=== PATIENT | male | born 1975 | race Hispanic/Latino ===

== ENCOUNTER 2020-08-30 15:16 | Observation (INO) | payer OTHER, SELFPAY ==
--- NOTE | 2020-08-30 15:54 | RAD ---
XR Ankle Lt 2 View History: Pain and swelling after fall Comparison: None. Findings: Spiral fracture distal tibial diaphysis without definite articular extension. The fracture extends from 13 cm with the joint line to 4 cm above the jointline. 1 cortex width lateral displacement. Distal fibula appears to be intact. Midfoot evaluation is limited. Small ossicle along the distal fibula. Impression: Mildly displaced spiral fracture distal tibial metadiaphysis.
[2020-08-30] MEDS ORDERED: Bacitracin 1 PK ONE (17:06)
[2020-08-30] MEDS ORDERED: traMADol HCl 50 MG TAB PO PRN ×2 (18:03)
[2020-08-30] MEDS ORDERED: Ondansetron ODT 4 MG TAB PO PRN (18:03)
[2020-08-30] MEDS ORDERED: Ondansetron PF 4 MG/2 ML Vial IVP PRN (18:03)
[2020-08-30] MEDS ORDERED: Dextrose 5% in Water 1,000 ML IV PRN (18:03)
[2020-08-30] MEDS ORDERED: hydrALAZINE 20 MG/ML VIAL SLOW IVP PRN (18:03)
[2020-08-30] MEDS ORDERED: Dextrose 50% Abboject 50 ML SYRINGE SLOW IVP PRN (18:03)
[2020-08-30] MEDS ORDERED: Cyclobenzaprine 10 MG TAB PO PRN (18:03)
[2020-08-30] MEDS ORDERED: Morphine 2 MG/ML VIAL SLOW IVP PRN (18:03)
--- NOTE | 2020-08-30 18:31 | HP ---
REQUESTING PHYSICIAN: Dr. Hernandes. ATTENDING SURGEON: Dr. Cruz. CONSULTATIONS: Orthopedics, Dr. Crowley. HISTORY OF PRESENT ILLNESS: The patient is a 45-year-old man. He came to the ER today complaining of left leg pain. He reports that three days ago he fell on his left side. The patient reports that he had been drinking alcohol and also has had a CVA leaving him with a left-sided deficit that contributed to his fall. Today, he came to the emergency department where he underwent evaluation and examination and was noted to have a left distal 1/3 tibia shaft fracture at which time we were asked to evaluate the patient for admission and obtain Orthopedic consultation. The patient denied loss of consciousness at the time of his fall. ALLERGIES: NONE. CURRENT MEDICATIONS: 1. Amlodipine. 2. Lisinopril. 3. Metoprolol. 4. . 5. Simvastatin. 6. . 7. Phenytoin. PAST MEDICAL HISTORY: CVA, seizure disorder related to his CVA, hypertension, hyperlipidemia, bipolar disorder. PAST SURGICAL HISTORY: None. SOCIAL HISTORY: The patient reports abusing cocaine in the past. Smokes one pack of cigarettes per day, drinks three or four times a week. He lives at home with family and is currently on disability. REVIEW OF SYSTEMS: A 10-point review of systems is negative as otherwise stated. PHYSICAL EXAMINATION: VITAL SIGNS: Blood pressure 126/82, heart rate 90, respirations 19, oxygen saturation 99% on room air, temperature is 98.5. GENERAL: The patient is resting comfortably in bed. He is awake, alert, and oriented. Elizabeth Coma Scale is 15. HEENT: Head is normocephalic and atraumatic. Eyes, extraocular motion intact. PERRLA bilaterally. Ears are atraumatic without discharge. Nose is atraumatic without discharge. Oropharynx is clear. NECK: Nontender. Trachea is midline with no JVD. CHEST: Clear to auscultation with good inspiratory and expiratory effort. HEART: Regular rate and rhythm. ABDOMEN: Soft, flat, nontender with active bowel sounds. PELVIS: Stable. EXTREMITIES: Neurovascularly intact x4. Left lower extremity has a small abrasion noted in the area of his fracture line, this is scabbed over. There is contusion around up and no evidence of infection. Compartments are soft. BACK: Atraumatic and nontender. LABORATORY DATA: Labs are pending. RADIOGRAPHS: Views of the left ankle show a mildly displaced spiral fracture of the distal tibial metadiaphysis. ASSESSMENT AND PLAN: 1. Status post ground level fall with delayed presentation of three days. 2. Left mildly displaced spiral fracture of distal tibia metadiaphysis. 3. History of CVA with left-sided deficit. 4. Seizure disorder. 5. History of hypertension. 6. History of hyperlipidemia. PLAN: Plan will be to admit the patient to the surgical floor. He will be made n.p.o. after midnight. Posterior splint was placed in the emergency department. We will do fluid hydration and resume home medications and supportive care overnight. Tomorrow, have the patient work with Physical and Occupational Therapy and possibly discharge home. We did discuss possible rehab placement if possible in light of the patient's left-sided deficit will be difficult for him to ambulate. We work with therapy with this. Dr. Crowley was notified of this patient and agree that he will do surgery tomorrow. The evaluation, examination, laboratory, and radiographic findings were discussed with Dr. Cruz after this dictation. Job ID: [id number]
[2020-08-30 18:59] LABS: #Lymphocytes 1.1 thou/uL (1.20-3.40); #Monocytes 1.1 thou/uL (0.11-0.59); %Basophils 0.5 % (0.0-1.0); %Eosinophils 0.3 % (0.0-10.0); %Lymphocytes 12.1 % (21.0-51.0); %Monocytes 11.9 % (0.0-10.0); %Neutrophils 75.2 % (42.0-75.0); Hemoglobin 14.7 g/dL (14.0-18.0); Mean Corpuscular HGB CONC 33.6 g/dL (32.0-36.0); Mean Corpuscular Hemoglobin 32.7 pg (27.0-31.0); Mean Corpuscular Volume 97.2 fL (78.0-98.0); Mean Platelet Volume 8.1 fL (7.4-10.4); Platelet Count 304 thou/uL (130-400); White Blood Cell (WBC) Count 9.3 thou/uL (4.8-10.8)
[2020-08-30 19:08] VITALS: BMI 28.3
[2020-08-30 19:22] LABS: Anion Gap 18 mmol/L (10-20); BUN (Urea Nitrogen) 23 mg/dL (8.9-20.6); Calc. Creatinine Clearance 83 mL/min (70-130); Calcium 9.2 mg/dL (7.8-10.44); Carbon Dioxide 19 mmol/L (22-29); Chloride 107 mmol/L (98-107); Glucose 163 mg/dL (70-105); Magnesium 2.7 mg/dL (1.6-2.6); Phosphorus 2.8 mg/dL (2.3-4.7); Potassium 4.4 mmol/L (3.5-5.1); Sodium 140 mmol/L (136-145)
[2020-08-30] MEDS: Ibuprofen 600 MG TAB PO SCH (22:38)
[2020-08-30] MEDS: Acetaminophen 500 MG TAB PO SCH (22:39)
[2020-08-30] MEDS: Famotidine 20 MG TAB PO SCH (22:39)
[2020-08-30] MEDS: Sodium Chloride 0.9% 1,000 ML IV SCH (22:46)
[2020-08-31] MEDS: Acetaminophen 500 MG TAB PO SCH (05:33)
[2020-08-31] MEDS: Ibuprofen 600 MG TAB PO SCH ×3 (05:34→21:19)
[2020-08-31 05:58] LABS: Hemoglobin 12.5 g/dL (14.0-18.0); Mean Corpuscular Hemoglobin 32.9 pg (27.0-31.0); Mean Corpuscular Volume 96.6 fL (78.0-98.0); Mean Platelet Volume 7.6 fL (7.4-10.4); Platelet Count 261 thou/uL (130-400); RBC Distribution Width 12.7 % (11.5-14.5); Red Blood Cell (RBC) Count 3.79 mill/uL (4.70-6.10); White Blood Cell (WBC) Count 6.5 thou/uL (4.8-10.8)
[2020-08-31 06:07] LABS: Anion Gap 13 mmol/L (10-20); BUN (Urea Nitrogen) 22 mg/dL (8.9-20.6); Calc. Creatinine Clearance 108 mL/min (70-130); Calcium 8.1 mg/dL (7.8-10.44); Carbon Dioxide 20 mmol/L (22-29); Chloride 110 mmol/L (98-107); Glucose 106 mg/dL (70-105); Magnesium 2.4 mg/dL (1.6-2.6); Potassium 3.7 mmol/L (3.5-5.1); Sodium 139 mmol/L (136-145)
[2020-08-31 07:04] LABS: Band 8 % (5-11); Eosinophils 1 % (0-10); Lymphocytes 25 % (21-51); MDiff Complete? YES; Monocytes 14 % (0-10); Neutrophil 52 % (42-75)
[2020-08-31] MEDS ORDERED: Acetaminophen/Codeine 30-300mg Tablet PO PRN (07:55)
[2020-08-31] MEDS: Sodium Chloride 0.9% 1,000 ML IV SCH ×2 (08:00→14:47)
[2020-08-31] MEDS: Famotidine 20 MG TAB PO SCH ×2 (08:01→21:20)
[2020-08-31] MEDS: Acetaminophen 325 MG TAB PO SCH ×3 (08:19→21:19)
[2020-08-31] MEDS ORDERED: Oxazepam 10 MG CAP PO SCH (09:00)
--- NOTE | 2020-08-31 09:14 | CON ---
DATE OF CONSULTATION: 08/31/2020 CHIEF COMPLAINT: Left leg pain. HISTORY OF PRESENT ILLNESS: Mr. Morris is a 45-year-old male, who fell approximately 3 days ago. He landed on his left side. He has weakness on his left side from a previous CVA. The patient had been drinking alcohol. He tripped. He cannot use a walker because of a left hand deformity from his CVA. Initially, thought he may have sprained his leg, however, he became worse. He was unable to bear weight. He went to the emergency department, where midshaft tibia fracture was identified. The patient has been admitted to the hospital. He is currently resting comfortably. He is in a splint. ALLERGIES: NONE. CURRENT MEDICATIONS: 1. Amlodipine. 2. Lisinopril. 3. Metoprolol. 4. Simvastatin. 5. Phenytoin. PAST MEDICAL HISTORY: Seizure disorder related to his CVA, hypertension, hyperlipidemia. He has a history of bipolar disorder. PAST SURGICAL HISTORY: Negative. SOCIAL HISTORY: The patient drinks alcohol occasionally. He does not drink daily. He smokes cigarettes daily. He has a history of cocaine use. REVIEW OF SYSTEMS: Positive for left leg pain. Otherwise, negative 10-point review of systems. IMAGING STUDIES: X-rays of the left tibia demonstrate a distal one-third fracture of the shaft of the tibia. There is displacement and comminution. PHYSICAL EXAMINATION: VITAL SIGNS: Temperature is 97.6, pulse is 77, respiratory rate of 14, oxygen saturation 98%, blood pressure 133/77. GENERAL: He is alert, oriented, in no apparent distress. Breathing comfortably. HEENT: Normocephalic and atraumatic. RESPIRATORY: Breathing comfortably. ABDOMEN: Soft, nontender, nondistended. MUSCULOSKELETAL: The left leg is splinted. He is able to wiggle his toes. He has 2-second capillary refill distally. IMPRESSION: Left distal one-third tibia fracture in a 45-year-old male. PLAN: The patient will need to go to the operating room today. We will plan for intramedullary nail fixation of his tibia. He is aware of risks and benefits. Goal is to allow him to mobilize and allow some weightbearing given that he has inability to use his left hand for a walker or crutches. He will have pain control. He will have antibiotics on-call to the operating room. We will proceed today as scheduled. Risks to include infection, nonunion, malunion, DVT, PE, pain, and others. Job ID: [id number]
[2020-08-31 09:24] LABS: SARS-CoV-2 NAA Rapid Test Not Detected (NotDetected)
[2020-08-31] MEDS: Folic Acid 1 MG TAB PO SCH (09:35)
[2020-08-31] MEDS: Thiamine 100 MG TAB PO SCH (09:35)
[2020-08-31] MEDS: levETIRAcetam 500 MG TAB PO SCH ×2 (09:35→21:19)
[2020-08-31] MEDS: Multivitamin W/ Minerals 1 TAB PO SCH (09:35)
[2020-08-31] MEDS ORDERED: Ondansetron PF 4 MG/2 ML Vial ONE (10:00)
[2020-08-31] MEDS ORDERED: Esmolol 100 MG/10 ML VIAL ONE (10:00)
[2020-08-31] MEDS ORDERED: PROPOFOL 200 MG/20 ML VIAL ONE (10:00)
[2020-08-31] MEDS ORDERED: Rocuronium Bromide 10 MG/ML (10ML VIAL) ONE (10:00)
[2020-08-31] MEDS ORDERED: Glycopyrrolate 0.2 MG/ML 5 ML SYRINGE ONE (10:00)
[2020-08-31] MEDS ORDERED: Lidocaine 1% PF 5 ML VIAL ONE (10:00)
[2020-08-31] MEDS ORDERED: Fentanyl 100 MCG/2 ML VIAL ONE ×2 (11:54→13:49)
[2020-08-31] MEDS ORDERED: Midazolam HCl 2 mg/2 ml Vial ONE ×2 (11:55→13:25)
[2020-08-31] MEDS ORDERED: HYDROmorphone 2 MG/ML VIAL ONE (12:42)
--- NOTE | 2020-08-31 15:24 | RAD ---
EXAM: XR Tib Fib Lt Leg 2 View DATE: 08/31/2020 12:00 PM INDICATION: ORIF of left foreleg fracture COMPARISON: None. FINDIN submitted fluoroscopic spot images of the left foreleg. There is an intramedullary caro traversing the distal tibial shaft fracture. Fracture alignment is giuliana r-anatomic. There is a mildly displaced obliquely oriented fracture involving the proximal fibular shaft. Total fluoroscopic time was 39.3 seconds. Total exposure was 1.43 mGy IMPRESSION:Intramedullary rodding of the distal tibial shaft fracture. Fracture alignment is near dionna tomic. Mildly displaced obliquely oriented proximal fibular shaft fracture Transcribed Date/Time: 08/31/2020 3:29 PM
--- NOTE | 2020-08-31 19:12 | OP ---
DATE OF PROCEDURE: 08/31/2020 OPERATION PERFORMED: Left tibia intramedullary nail. PREOPERATIVE DIAGNOSIS: Displaced Left tibia fracture. POSTOPERATIVE DIAGNOSIS: Displaced Left tibia fracture. COMPLICATIONS: None. ESTIMATED BLOOD LOSS: 100 mL. APPLICATION SUPPORT DEVELOPER: Ayo Mujica PA-C IMPLANTS: Synthes 315 mm x 9 mm tibial nail with Crosslock screws. INDICATIONS: Mr. Morris is a 45-year-old male who has fallen and fractured his left tibia. He has been indicated for intramedullary nail fixation to restore anatomic alignment, promote healing, and allow him to mobilize. Risks have been reviewed in detail. He has elected to proceed with the operation. DESCRIPTION OF PROCEDURE: The patient's left lower extremity was prepped and draped in sterile fashion. We began the procedure with incision over the knee. We dissected down through the subcutaneous tissues to the fascia. The fascia was opened. At this point, we performed a medial parapatellar arthrotomy. We then inserted our guidewire at the tibial plateau. We checked this on intraoperative x-rays. We overdrilled the guidewire. We then inserted a ball-tipped guidewire from proximal to distal across the fracture. We reduced the fracture as well with traction. We measured the length for a guidewire. We then reamed from an 8.5 reamer to a 10. We next impacted a 300 mm x 9 mm tibial nail. We placed 2 proximal Crosslock screws and two distal Crosslock screws. A sterile dressing was applied. After we took final x-ray images, we closed all wounds in layers carefully. The patient was awoken and taken to the recovery room in good condition. The librarian assistant surgeon was responsible for positioning the patient, preparing the injured extremity, applying the tourniquet, and assisting in preparation for surgery. The librarian assistant was instrumental in reducing the injured limb by applying traction and reduction maneuvers as well as holding retractors and reduction tools. The librarian assistant also was instrumental in assisting in exposure throughout the operation using appropriate retractors. The librarian assistant participated in closure of the operative site as well as dressing application and splint application. Job ID: [id number] [facility]
--- NOTE | 2020-08-31 21:07 | PRG ---
DATE OF SERVICE: 08/31/2020 SUBJECTIVE: The patient is currently hospital day 2 status post ground level fall which had a remote presentation. He sustained a left distal tibia fracture that today underwent intramedullary nail fixation. He tolerated this procedure well. He begun working with Physical and Occupational therapy and will most likely be able to be discharged home tomorrow. The patient is currently tolerating a diet and his pain is controlled. PHYSICAL EXAMINATION: VITAL SIGNS: Temperature is 97.5, heart rate 93, blood pressure 131/84, respirations 16, oxygen saturation 95% on room air. GENERAL: The patient is resting comfortably in bed. He is postop from his procedure, which he has already worked with therapy. He was seen this morning as they were preparing him for surgery also. He is awake, alert, conversant, appropriate, and feels that he is ready to go home. HEENT: Unremarkable. LUNGS: Clear to auscultation bilaterally. HEART: Regular rate and rhythm. ABDOMEN: Soft, flat, nontender with active bowel sounds. EXTREMITIES: Neurovascularly intact x4. LABORATORY FINDINGS: White blood cell count 6.5, hemoglobin 12.5, hematocrit 36.6, platelets 261. Sodium 139, potassium 3.7, chloride 110, CO2 of 20, BUN 22, creatinine 0.93, glucose 106, magnesium 2.4, phosphorus 3.0. RADIOGRAPHS: There are no radiographs reviewed this morning. ASSESSMENT: 1. Status post ground level fall with delayed presentation of 3 days. 2. Status post intramedullary nail fixation of left tibial fracture. 3. History of cerebrovascular accident with left-sided deficit. 4. Seizure disorder. 5. History of hypertension and hyperlipidemia. PLAN: Plan will be to continue supportive care. Encourage physical and occupational therapy and likely discharge home tomorrow. The patient was evaluated this morning with Dr. Cruz during rounds. Job ID: [id number]
[2020-08-31] MEDS: CEFAZOLIN 2 GM in Premix Bag 1 BAG IVPB SCH (21:20)
[2020-09-01] MEDS: CEFAZOLIN 2 GM in Premix Bag 1 BAG IVPB SCH (03:17)
[2020-09-01] MEDS: Acetaminophen 325 MG TAB PO SCH ×3 (04:16→14:39)
[2020-09-01] MEDS: Ibuprofen 600 MG TAB PO SCH ×2 (06:29→14:38)
[2020-09-01 07:53] VITALS: TEMP 97.9
[2020-09-01] MEDS: Thiamine 100 MG TAB PO SCH (09:25)
[2020-09-01] MEDS: Folic Acid 1 MG TAB PO SCH (09:25)
[2020-09-01] MEDS: Famotidine 20 MG TAB PO SCH (09:25)
[2020-09-01] MEDS: Multivitamin W/ Minerals 1 TAB PO SCH (09:25)
[2020-09-01] MEDS: levETIRAcetam 500 MG TAB PO SCH (09:25)
[2020-09-01] MEDS ORDERED: Acetaminophen 650 MG/20.3 ML UDCUP PER TUBE PRN (10:03)
--- NOTE | 2020-09-01 10:05 | PRG ---
DATE OF SERVICE: 09/01/2020 SUBJECTIVE: Lon is a 45-year-old male postop day 1 from a left tibial nail for distal metadiaphyseal fracture. He is comfortable and he inquires about going home this morning. OBJECTIVE: Strike through has been re-dressed x1, but he did have some significant strike through last night. He is neurovascularly intact. He has poor range of motion, but his sensation is there. This is a preoperative finding due to his hemiparesis. IMPRESSION: 1. A 45-year-old male postop day #1 left tibial nail insertion. 2. Preoperative hemiparesis secondary to a centrally mediated stroke. PLAN: Continue current care. Discharge disposition per Trauma Team. Job ID: [id number]
[2020-09-01] MEDS ORDERED: risperiDONE 1 MG TAB PO SCH ×2 (10:15→21:00)
[2020-09-01 12:26] VITALS: BP 127/89
[2020-09-01] MEDS ORDERED: Metoprolol Tartrate 25 MG TAB PO SCH (21:00)
[2020-09-01] MEDS ORDERED: levETIRAcetam 500 mg/5 ml Oral Solution PER TUBE SCH (21:00)
[2020-09-02] MEDS ORDERED: Amlodipine 10 MG TAB PER TUBE SCH (09:00)
[2020-09-08] MEDS ORDERED: cloNIDine 0.2mg/24 Hour PATCH TD SCH (09:00)
--- NOTE | 2020-09-17 22:16 | EKG ---
Test Reason : Blood Pressure : / mmHG Vent. Rate : 087 BPM Atrial Rate : 087 BPM P-R Int : 092 ms QRS Dur : 086 ms QT Int : 378 ms P-R-T Axes : -18 008 -03 degrees QTc Int : 454 ms Sinus rhythm with short IA Nonspecific T wave abnormality Abnormal ECG Confirmed by RAMÓN MARIN DO ([id number]), features editor PACHECO ISLAS ([id number]) on 09/17/2020 10:16:25 PM Referred By: Confirmed By:RAMÓN MARIN DO
== END 2020-09-01 15:20 | disposition home or self-care (01) ==
LOC: ERS 15:16 → SJJU 16:53
PROVIDERS: ADMIT Surgery; ATTEND Surgery
PROC: 0QSH06Z Reposition Left Tibia with Intramedullary Internal Fixation Device, Open Approach (ICD-10-PCS; principal; 2020-08-31)
DX: S82.242A Displaced spiral fracture of shaft of left tibia, initial encounter for closed fracture (principal); I69.354 Hemiplegia and hemiparesis following cerebral infarction affecting left non-dominant side; I69.398 Other sequelae of cerebral infarction; G40.909 Epilepsy, unspecified, not intractable, without status epilepticus; I10 Essential (primary) hypertension; E78.5 Hyperlipidemia, unspecified; F31.9 Bipolar disorder, unspecified; F17.210 Nicotine dependence, cigarettes, uncomplicated; F14.11 Cocaine abuse, in remission; Z79.899 Other long term (current) drug therapy; Z20.822 Contact with and (suspected) exposure to COVID-19; W01.0XXA Fall on same level from slipping, tripping and stumbling without subsequent striking against object, initial encounter
CPT/HCPCS: 36415; 76000; 80048; 83735; 84100; 85025; 93005; 96365; 96366; C1713; G0378; J0690; J1170; J2250; J2405; J2704; J3010; U0002

== ENCOUNTER 2021-01-24 13:25 | Outpatient (CLI) | payer OTHER ==
[2021-01-25 11:02] LABS: SARS-CoV-2 PCR by NAA Not Detected (NotDetected)
== END 2021-01-24 13:26 | disposition home or self-care (01) ==
LOC: LABBT 13:25
PROVIDERS: ATTEND Orthopaedic Surgery
DX: Z01.812 Encounter for preprocedural laboratory examination (principal); T85.848A Pain due to other internal prosthetic devices, implants and grafts, initial encounter; Z20.822 Contact with and (suspected) exposure to COVID-19
CPT/HCPCS: U0003; U0005

== ENCOUNTER 2021-01-26 10:37 | Day surgery (SDC) | payer OTHER ==
[2021-01-25 10:08] VITALS: BMI 28.3
[2021-01-26] MEDS ORDERED: Lidocaine 1% (PF) 30 ML VIAL ONE (12:03)
[2021-01-26] MEDS ORDERED: Fentanyl 100 MCG/2 ML VIAL ONE (12:25)
[2021-01-26] MEDS ORDERED: PROPOFOL 200 MG/20 ML VIAL ONE (12:35)
[2021-01-26] MEDS ORDERED: Lidocaine 1% PF 5 ML VIAL ONE (12:35)
[2021-01-26] MEDS ORDERED: ePHEDrine Sulfate 50 MG/10 ML VIAL ONE (12:35)
[2021-01-26] MEDS ORDERED: Ondansetron PF 4 MG/2 ML Vial ONE (12:35)
[2021-01-26] MEDS ORDERED: PHENYLEPHRINE-NS 100 MCG/ML 10 ML SYRINGE ONE (12:35)
[2021-01-26] MEDS ORDERED: Dexamethasone 20 MG/5 ML VIAL ONE (12:35)
== END 2021-01-26 15:15 | disposition home or self-care (01) ==
LOC: SDC 10:37
PROVIDERS: ATTEND Orthopaedic Surgery
PROC: 0YPBXYZ Removal of Other Device from Left Lower Extremity, External Approach (ICD-10-PCS; principal; 2021-01-26)
DX: T84.84XA Pain due to internal orthopedic prosthetic devices, implants and grafts, initial encounter (principal); I10 Essential (primary) hypertension; E78.5 Hyperlipidemia, unspecified; F17.200 Nicotine dependence, unspecified, uncomplicated; Z79.899 Other long term (current) drug therapy; Z86.73 Personal history of transient ischemic attack (TIA), and cerebral infarction without residual deficits
CPT/HCPCS: 76000; J0690; J2001; J3010

== ENCOUNTER 2021-02-06 00:05 | Emergency (ER) | payer OTHER ==
[2021-02-06 00:40] LABS: Bilirubin Negative (Negative); Blood, Urine Negative (Negative); Clarity Clear (Clear); Glucose, Urine (Dipstick) Normal (Negative); Ketone, Urine Negative (Negative); Leukocyte Negative Leu/uL (Negative); Nitrite Negative (Negative); Protein, Urine (Dipstick) Negative (Neg-Trace); Specific Gravity, Urine 1.004 (1.002-1.036); Urobilinogen Normal mg/dL (Less than 2); pH, Urine 6.5 (5.0-9.0)
[2021-02-06 00:50] LABS: Amphetamine Not Detected (NotDetected); Barbiturates Screen Detected (NotDetected); Benzodiazepine Screen Not Detected (NotDetected); Cocaine Metabolite Screen Not Detected (NotDetected); Medtox Control Line Valid? VALID (VALID); Medtox Reader # READER 4; Methadone Not Detected (NotDetected); Methamphetamine Not Detected (NotDetected); Opiate Screen Not Detected (NotDetected); Oxycodone Screen Not Detected (NotDetected); Phencyclidine (PCP) Not Detected (NotDetected); THC/Cannabinoid Screen Not Detected (NotDetected); Tricyclic Screen Not Detected (NotDetected)
[2021-02-06 00:54] LABS: #Basophils 0.1 thou/uL (0.0-0.2); #Eosinphils 0.1 thou/uL (0.0-0.7); #Monocytes 0.6 thou/uL (0.11-0.59); #Neutrophils 3.3 thou/uL (1.40-6.50); %Basophils 1.1 % (0.0-1.0); %Eosinophils 2.3 % (0.0-10.0); %Lymphocytes 32.5 % (21.0-51.0); %Monocytes 10.1 % (0.0-10.0); Hemoglobin 15.6 g/dL (14.0-18.0); Mean Corpuscular HGB CONC 34.5 g/dL (32.0-36.0); Mean Corpuscular Hemoglobin 33.1 pg (27.0-31.0); Mean Corpuscular Volume 95.9 fL (78.0-98.0); Platelet Count 366 thou/uL (130-400); RBC Distribution Width 14.4 % (11.5-14.5); Red Blood Cell (RBC) Count 4.73 mill/uL (4.70-6.10); White Blood Cell (WBC) Count 6.2 thou/uL (4.8-10.8)
[2021-02-06 01:14] LABS: Acetaminophen Less than 6.0 mcg/mL (10.0-30.0); Alcohol 179 mg/dL (Less than 10); Salicylate Less than 8.0 mg/dL (15.0-30.0)
[2021-02-06 01:16] LABS: ALT (SGPT) 22 U/L (8-55); AST (SGOT) 18 U/L (5-34); Alcohol 179 mg/dL (Less than 10); Alkaline Phosphatase 127 U/L (40-110); Anion Gap 18 mmol/L (10-20); BUN (Urea Nitrogen) 9 mg/dL (8.9-20.6); Bilirubin, Total 0.3 mg/dL (0.2-1.2); Calc. Creatinine Clearance 0 mL/min (70-130); Calcium 9.4 mg/dL (7.8-10.44); Carbon Dioxide 16 mmol/L (22-29); Chloride 107 mmol/L (98-107); Globulin 4.6 g/dL (2.4-3.5); Glucose 108 mg/dL (70-105); Potassium 3.2 mmol/L (3.5-5.1); Protein, Total 8.6 g/dL (6.0-8.3); Sodium 138 mmol/L (136-145)
== END 2021-02-06 02:07 | disposition home or self-care (01) ==
LOC: ERS 00:05
DX: F10.129 Alcohol abuse with intoxication, unspecified (principal); I10 Essential (primary) hypertension; F17.210 Nicotine dependence, cigarettes, uncomplicated
CPT/HCPCS: 36415; 80053; 80306; 80307; 81003; 84443; 85025; 99284

== ENCOUNTER 2022-01-05 06:07 | Emergency (ER) | payer OTHER ==
[2022-01-05 06:45] LABS: #Eosinphils 0.1 thou/uL (0.0-0.7); #Lymphocytes 1.9 thou/uL (1.20-3.40); #Monocytes 0.6 thou/uL (0.11-0.59); #Neutrophils 4.6 thou/uL (1.40-6.50); %Basophils 0.5 % (0.0-1.0); %Eosinophils 1.9 % (0.0-10.0); %Lymphocytes 25.8 % (21.0-51.0); %Monocytes 8.6 % (0.0-10.0); %Neutrophils 63.2 % (42.0-75.0); Hemoglobin 17.1 g/dL (14.0-18.0); Mean Corpuscular HGB CONC 33.1 g/dL (32.0-36.0); Mean Corpuscular Hemoglobin 32.6 pg (27.0-31.0); Mean Corpuscular Volume 98.5 fL (78.0-98.0); Mean Platelet Volume 7.3 fL (7.4-10.4); Platelet Count 408 thou/uL (130-400); Red Blood Cell (RBC) Count 5.25 mill/uL (4.70-6.10); White Blood Cell (WBC) Count 7.3 thou/uL (4.8-10.8)
[2022-01-05 07:25] LABS: ALT (SGPT) 59 U/L (8-55); AST (SGOT) 39 U/L (5-34); Acetaminophen Less than 10.0 mcg/mL (10.0-30.0); Albumin 4.4 g/dL (3.5-5.0); Alcohol 191 mg/dL (Less than 10); Alkaline Phosphatase 126 U/L (40-110); Anion Gap 20 mmol/L (10-20); BUN (Urea Nitrogen) 9 mg/dL (8.9-20.6); Bilirubin, Total 0.2 mg/dL (0.2-1.2); Calc. Creatinine Clearance 0 mL/min (70-130); Calcium 9.4 mg/dL (7.8-10.44); Carbon Dioxide 16 mmol/L (22-29); Chloride 106 mmol/L (98-107); Globulin 4.6 g/dL (2.4-3.5); Glucose 135 mg/dL (70-105); Potassium 3.7 mmol/L (3.5-5.1); Salicylate Less than 8.0 mg/dL (15.0-30.0); Sodium 138 mmol/L (136-145)
[2022-01-05 07:37] LABS: Amphetamine Not Detected (NotDetected); Barbiturates Screen Not Detected (NotDetected); Benzodiazepine Screen Not Detected (NotDetected); Cocaine Metabolite Screen Not Detected (NotDetected); Methadone Not Detected (NotDetected); Methamphetamine Not Detected (NotDetected); Opiate Screen Not Detected (NotDetected); Oxycodone Screen Not Detected (NotDetected); Phencyclidine (PCP) Not Detected (NotDetected); THC/Cannabinoid Screen Not Detected (NotDetected); Tricyclic Screen Not Detected (NotDetected)
[2022-01-05 13:37] LABS: Acetaminophen Less than 10.0 mcg/mL (10.0-30.0); Alcohol 79 mg/dL (Less than 10); Salicylate Less than 8.0 mg/dL (15.0-30.0)
== END 2022-01-05 15:46 | disposition home or self-care (01) ==
LOC: ERS 06:07
DX: F10.129 Alcohol abuse with intoxication, unspecified (principal); R45.851 Suicidal ideations; I10 Essential (primary) hypertension; F17.210 Nicotine dependence, cigarettes, uncomplicated; Y90.6 Blood alcohol level of 120-199 mg/100 ml; Z86.73 Personal history of transient ischemic attack (TIA), and cerebral infarction without residual deficits
CPT/HCPCS: 36415; 80053; 80306; 80307; 85025; 99285